=== PATIENT | male | born 1950 | race Caucasian/White ===

== ENCOUNTER → 2016-07-27 | Outpatient (CLI) | payer OTHER, MEDICARE | LOC: FIMAGING 09:51 | PROVIDERS: ATTEND Internal Medicine | DX: J18.1 Lobar pneumonia, unspecified organism (principal) | CPT/HCPCS: 36415-PO; G0463-PO ==

== ENCOUNTER → 2016-09-09 | Outpatient (CLI) | payer OTHER, MEDICARE | LOC: FIMAGING 09:50 | PROVIDERS: ATTEND Internal Medicine | DX: Z09 Encounter for follow-up examination after completed treatment for conditions other than malignant neoplasm (principal); Z87.01 Personal history of pneumonia (recurrent) ==

== ENCOUNTER → 2017-03-17 | Outpatient (CLI) | payer OTHER, MEDICARE | LOC: FIMAGING 07:50 | PROVIDERS: ATTEND Physical Medicine & Rehabilitation | DX: M41.85 Other forms of scoliosis, thoracolumbar region (principal) ==

== ENCOUNTER → 2017-04-12 | Outpatient (CLI) | payer OTHER | LOC: FIMAGING 10:23 | PROVIDERS: ATTEND Internal Medicine | DX: Z13.6 Encounter for screening for cardiovascular disorders (principal); R93.1 Abnormal findings on diagnostic imaging of heart and coronary circulation; R91.1 Solitary pulmonary nodule; Z82.49 Family history of ischemic heart disease and other diseases of the circulatory system ==

== ENCOUNTER 2017-07-26 07:53 | Emergency (ER) | payer OTHER, MEDICARE ==
[2017-07-26 07:58] VITALS: BP 151/100; PULSE 58; RESP 18; TEMP 98.4; O2SAT 95
--- NOTE | 2017-07-26 08:03 | EDPHY ---
H & P Stated Complaint: lac left index finger on Tuesday while using saw Time Seen by Provider: 07/26/17 08:02 - Personal History Current Tetanus/Diphtheria Vaccine: No Current Tetanus Diphtheria and Acellular Pertussis (TDAP): No - Medical/Surgical History Hx Asthma: No Hx Chronic Respiratory Disease: No Hx Diabetes: No Hx Cardiac Disease: No Hx Renal Disease: No Hx Cirrhosis: No Hx Alcoholism: No Hx HIV/AIDS: No Hx Splenectomy or Spleen Trauma: No Other PMH: PSH: R rotator cuff x 2; L rotator cuff; T&A;. PMH: HTN; hyperlipidemia; - Social History Smoking Status: Never smoked Constitutional: Initial Vital Signs Temperature (C) 36.9 C 07/26/17 07:56 Heart Rate 58 L 07/26/17 07:56 Respiratory Rate 18 07/26/17 07:56 Blood Pressure 151/100 H 07/26/17 07:56 O2 Sat (%) 95 07/26/17 07:56 O2 Delivery Mode Room Air Allergies/Adverse Reactions: No Known Allergies Allergy (Verified 07/26/17 07:55) Home Medications: Medication Instructions Recorded NK [No Known Home Meds] 07/26/17 Medical Decision Making ED Course/Re-evaluation: CHIEF COMPLAINT: Laceration left index finger HISTORY OF PRESENT ILLNESS: The patient is a 66 y/o male arriving for evaluation of a laceration of his left index finger. He accidentally cut it with a saw 2 days ago. No other trauma. A doctor friend saw it last night and told him to "get it looked at." He denies significant pain, weakness or numbness in his finger, fever, redness, purulent discharge, or other complaints. No recent illness. REVIEW OF SYSTEMS: A 10 point review of systems was performed and is negative with the exception of the elements mentioned in the history of present illness. PHYSICAL EXAM: HR, BP, O2 Sat, RR. Temp noted General Appearance: Alert, well hydrated, appropriate, and non-toxic appearing. Head: Atraumatic without scalp tenderness or obvious injury Throat: Mucus membranes moist. Neck: Supple Respiratory: No distress Cardiovascular: Good capillary refill all extremities. Musculoskeletal: 1cm healing laceration of left index finger, no nail involvement. Otherwise normal active ROM of all extremities, atraumatic. Neurological: Alert, appropriate, and interactive. Nonfocal neuro exam. Skin: No rashes, good turgor, no nodules on palpation. Past medical history: Hypertension Past surgical history: Rotator cuff repair Family history: Noncontributory Social history: Lives in [place]. . Retired. DIFFERENTIAL DIAGNOSIS: The differential diagnosis for the patient's injury included but was not limited to laceration, abrasion, fracture, ligamentous injury, contusion, muscular strain. MEDICAL DECISION MAKING: This is a 66 y/o male who presents with an uncomplicated 1cm healing laceration of his left index finger. Injury occurred 2 days ago and appears to be healing well with no signs of infection. He is neurovascularly intact. Non-suturable at this time. Patient will be given tetanus booster and discharged with standard laceration care and follow up instructions. Return precautions discussed. He is comfortable with this plan. Departure - Departure Disposition: Home, Routine, Self-Care Clinical Impression: Laceration of index finger Qualifiers: Encounter type: initial encounter Damage to nail status: without damage Foreign body presence: without foreign body Laterality: left Qualified Code(s): S61.211A - Laceration without foreign body of left index finger without damage to nail, initial encounter Condition: Good Instructions: Diphtheria/Acellular Pertussis/Tetanus Booster Vaccine (By injection), Finger Laceration (ED) Additional Instructions: 1. Keep site clean and dry. 2. Apply thin layer of topical Bacitracin for the next few days. 3. Follow up with your primary care provider for unimproved symptoms over the next few days. Referrals: Shayne Pitts MD [Primary Care Provider] - As per Instructions Report Scribed for: [facility] Report Scribed by: Winsome Pradhan Date of Report: 07/26/17 Time of Report: 08:06
[2017-07-26] MEDS ORDERED: TDAP ADULT 0.5 ML INJ (BOOSTRIX) IM ONE (08:06)
== END 2017-07-26 08:21 | disposition home or self-care (01) ==
DX: S61.211A Laceration without foreign body of left index finger without damage to nail, initial encounter (principal); I10 Essential (primary) hypertension; Z23 Encounter for immunization; W31.1XXA Contact with metalworking machines, initial encounter

== ENCOUNTER → 2018-03-21 | Outpatient (CLI) | payer OTHER, MEDICARE | LOC: FIMAGING 09:13 | PROVIDERS: ATTEND Internal Medicine | DX: R91.1 Solitary pulmonary nodule (principal) ==